=== PATIENT | female | born 1985 | race Caucasian/White ===

== ENCOUNTER 2016-11-03 16:22 | Emergency (ER) | payer BC ==
[~2016-11-03] VITALS: Wt 120.2 kg
[~2016-11-03 16:22] MED LIST: AMOXICILLIN500 M2 PO; LISINOPRIL/HCTZ1 TA3 PO; LOMOTIL 0.025 M1 TA1 PO; MELOXICAM7.5 MG PO; Meclizine25 MG PO; ZOFRAN4 MG PO; ZYRTEC10 MG PO
[2016-11-03] MEDS ORDERED: MELOXICAM7.5 MG PO (16:38)
[2016-11-03 17:14] LABS: BASO % 0.4 % (0.0-1.0); EOS # 0.2 10*3/uL (0.0-0.4); EOS % 2.1 % (1.0-4.0); HEMATOCRIT 36.2 % (37.0-47.0); HEMOGLOBIN 12.9 g/dl (12.0-16.0); LYMPH # 2.2 10*3/uL (1.3-4.4); MEAN CELL VOLUME 88.3 fl (81.0-99.0); MEAN CORPUSCULAR HGB 31.5 pg (27.0-31.0); MEAN CORPUSCULAR HGB CONC 35.6 g/dl (33.0-37.0); MEAN PLATELET VOLUME 10.7 fl (9.6-12.3); MONO # 0.6 10*3/uL (0.1-1.0); MONO % 8.5 % (3.0-9.0); NEUT # 4.3 10*3/uL (2.3-7.9); NEUT % 58.6 % (47.0-73.0); PLATELET COUNT AUTOMATED 229 10*3/uL (130-400); RED CELL DISTRI WIDTH 12.6 % (0-14.5); WHITE BLOOD COUNT 7.3 10*3/uL (4.8-10.8)
[2016-11-03 19:00] LABS: ALBUMIN 3.3 gm/dl (3.1-4.5); ALKALINE PHOSPHATASE 63 U/L (45-117); BILIRUBIN, TOTAL 0.3 mg/dl (0.2-1.0); BUN 5 mg/dl (7-24); CARBON DIOXIDE 28 mmol/L (21-32); CHLORIDE 105 mmol/L (98-107); EST GLOM FILT AFRICAN AMERICAN > 60 ml/min; GLUCOSE 87 mg/dL (65-99); POTASSIUM 3.2 mmol/L (3.5-5.1); SGOT/AST 13 IU/L (3-35); SGPT/ALT 23 U/L (12-78); SODIUM 143 mmol/L (136-145); TOTAL PROTEIN 7.2 gm/dL (6.4-8.2)
[2016-11-03] MEDS ORDERED: ZOFRAN ODT4 MG SL (19:04)
[2016-11-03] MEDS ORDERED: K-TAB20 MEQ PO (19:04)
== END 2016-11-03 19:34 | disposition home or self-care (01) ==
LOC: ED 16:22
PROVIDERS: Physician Assistant
DX: K52.9 Noninfective gastroenteritis and colitis, unspecified (principal); Z79.899 Other long term (current) drug therapy

== ENCOUNTER → 2016-12-04 | Day surgery (SDC) | payer BC ==
[~2016-12-04] VITALS: Ht 170.1 cm; Wt 123.4 kg
[2016-12-04] VITALS (9 sets, daily range): BP systolic 131–153; BP diastolic 83–96
[~2016-12-04] MED LIST changes: +HYDROCODONE BIT1 T11 PO; +IBU800 MG PO; +K-TAB20 MEQ PO; +MULTIPLE VITAMI1 T25 PO; +ZOFRAN ODT4 MG SL
--- NOTE | ~2016-12-04 | O ---
[place], [place] OPERATIVE NOTE [facility]: [id number] UNIT #: [id number] ROOM: DOCTOR: ALY LEUNG MD BIRTHDATE: [birth year] DOS: 12/04/2016 PREOPERATIVE DIAGNOSIS: Symptomatic gallstones. POSTOPERATIVE DIAGNOSIS: Symptomatic gallstones. PROCEDURE: Laparoscopic cholecystectomy. SURGEON: Aly Leung MD PROCESS EXCELLENCE MANAGER: [id number]. ANESTHESIA: General with endotracheal intubation. INDICATIONS: This is a 31-year-old lady who is here for a laparoscopic cholecystectomy with symptomatic gallstones disease. Procedure and its complications were explained to the patient in detail. Complications that were discussed included, but were not limited to bleeding, infection, hematoma/seroma/abscess formation, prolonged postoperative pain, damage to underlying vital structures, inadvertent injury to common bile duct, biloma formation and incisional hernia formation. She agreed to proceed. DESCRIPTION OF PROCEDURE: After identifying the patient, the patient was brought to the operating suite and laid in the supine position. After induction of general anesthesia, timeout procedure was called and the parts were then painted and draped in the usual sterile fashion. An incision was made in a transverse fashion below the umbilicus. The skin and the subcutaneous tissue were incised. The fascia was incised and the edges of the fascia were hooked up with the help of 0 Vicryl for the purposes of tethering the [place] port. The peritoneum was opened and a 12 mm [place] port was introduced into the peritoneal cavity and pneumoperitoneum was created. Under direct vision, an epigastric incision of 10 mm and two 5 mm incisions were made in the right upper quadrant. The gallbladder was retracted superiorly and laterally. Because of enlarged fatty liver, it was decided to do the fundus first technique which was done with the help of electrocautery. After adequate mobilization of the gallbladder was obtained, the gallbladder was retracted superiorly and laterally. The cystic duct and the cystic artery were meticulously dissected until the critical view of safety was obtained and the triangle of Calot was identified. Thereafter, each of these structures were clipped 3 times and cut between the first and the second clip. The gallbladder was then removed from the bed of the gallbladder and placed in an EndoCatch bag and removed from the peritoneal cavity. It was sent for histopathological diagnosis. Hemostasis was achieved in the liver bed. For additional [place], [place] OPERATIVE NOTE NAME: RAS TERESA UNIT #: [id number] ROOM: DOCTOR: ALY LEUNG MD BIRTHDATE: [birth year] hemostasis, a piece of Surgicel was placed in the liver bed. After hemostasis was confirmed, the excess blood was sucked away and irrigation was used to irrigate the peritoneal cavity after hemostasis was confirmed again. The right upper quadrant and epigastric ports were removed and there was no bleeding seen. The umbilical port was also removed and the 2 fascial sutures were tied together. The edges of the skin were approximated with the help of 4-0 Vicryl after infiltrating it with 1% plain lidocaine. The patient was extubated uneventfully and the patient was taken to the recovery room in a stable fashion. There were no complications. Dr. Aly Leung, the attending surgeon was present throughout the operating case. Aly Leung MD CM:OPRECORD:OPERATIVE NOTE [id number] ALY LEUNG MD 12/04/[id number] interface
== END | disposition home or self-care (01) ==
LOC: SDC 11-28 10:15
DX: K80.12 Calculus of gallbladder with acute and chronic cholecystitis without obstruction (principal); Z87.891 Personal history of nicotine dependence; I10 Essential (primary) hypertension; K21.9 Gastro-esophageal reflux disease without esophagitis; F41.9 Anxiety disorder, unspecified; G43.909 Migraine, unspecified, not intractable, without status migrainosus; F32.9 Major depressive disorder, single episode, unspecified; H81.09 Meniere's disease, unspecified ear; Z98.890 Other specified postprocedural states; Z83.3 Family history of diabetes mellitus; Z82.49 Family history of ischemic heart disease and other diseases of the circulatory system

== ENCOUNTER 2017-12-11 11:58 | Emergency (ER) | payer OTHER ==
[~2017-12-11] VITALS: Ht 167.6 cm; Wt 120.2 kg
[2017-12-11 12:28] LABS: BASO % 0.1 % (0.0-1.0); EOS % 0.1 % (1.0-4.0); HEMATOCRIT 32.7 % (37.0-47.0); HEMOGLOBIN 11.2 g/dl (12.0-16.0); LYMPH % 14.1 % (27.0-41.0); MEAN CELL VOLUME 92.1 fl (81.0-99.0); MEAN CORPUSCULAR HGB 31.5 pg (27.0-31.0); MEAN CORPUSCULAR HGB CONC 34.3 g/dl (33.0-37.0); MEAN PLATELET VOLUME 10.6 fl (9.6-12.3); MONO # 0.6 10*3/uL (0.1-1.0); MONO % 7.7 % (3.0-9.0); NEUT # 5.6 10*3/uL (2.3-7.9); NEUT % 77.6 % (47.0-73.0); PLATELET COUNT AUTOMATED 221 10*3/uL (130-400); RED BLOOD COUNT 3.55 10*6/uL (4.10-5.10); RED CELL DISTRI WIDTH 13.2 % (0-14.5); WHITE BLOOD COUNT 7.2 10*3/uL (4.8-10.8)
[2017-12-11 12:45] LABS: ALBUMIN 2.8 gm/dl (3.1-4.5); ALKALINE PHOSPHATASE 116 U/L (45-117); BUN 4 mg/dl (7-24); CHLORIDE 106 mmol/L (98-107); CREATININE 0.51 mg/dL (0.55-1.02); POTASSIUM 3.1 mmol/L (3.5-5.1); SGOT/AST 12 IU/L (3-35); SGPT/ALT 18 U/L (12-78); SODIUM 136 mmol/L (136-145); TOTAL PROTEIN 7.5 gm/dL (6.4-8.2)
[2017-12-11 13:43] LABS: BILIRUBIN 2+ (NEGATIVE); BLOOD NEGATIVE (NEGATIVE); CLARITY CLOUDY (CLEAR); COLOR YELLOW (YELLOW); GLUCOSE NEGATIVE (NEGATIVE); KETONE 3+ (NEGATIVE); LEUKO ESTERASE NEGATIVE (NEGATIVE); NITRITE NEGATIVE (NEGATIVE); SPECIFIC GRAVITY >= 1.030 (1.005-1.030); UROBILINOGEN 0.2 E.U./dl (0.2-1.0)
[2017-12-11 13:59] LABS: BACTERIA 3+; CALCIUM OXALATE CRYSTALS 3+
[2017-12-11] MEDS ORDERED: ZOFRAN4 MG PO (15:08)
== END 2017-12-11 14:56 | disposition home or self-care (01) ==
LOC: ED 11:58
PROVIDERS: Nurse Practitioner Family
DX: O99.613 Diseases of the digestive system complicating pregnancy, third trimester (principal); K52.9 Noninfective gastroenteritis and colitis, unspecified; O26.893 Other specified pregnancy related conditions, third trimester; R03.0 Elevated blood-pressure reading, without diagnosis of hypertension; Z3A.32 32 weeks gestation of pregnancy; Z79.899 Other long term (current) drug therapy

== ENCOUNTER → 2019-03-30 | Outpatient (CLI) | payer OTHER ==
[~2019-03-30] MED LIST changes: +CELECOXIB200 M1 PO; +Motrin,Rufen800 MG PO; +NORCO 5-325 TA1 EACH PO; +SEPTDS PO
[2019-03-30 10:00] LABS: HEMATOCRIT 36.5 % (37.0-47.0); HEMOGLOBIN 12.2 g/dl (12.0-16.0); MEAN CELL VOLUME 92.2 fl (81.0-99.0); MEAN CORPUSCULAR HGB 30.8 pg (27.0-31.0); MEAN CORPUSCULAR HGB CONC 33.4 g/dl (33.0-37.0); MEAN PLATELET VOLUME 10.5 fl (9.6-12.3); RED BLOOD COUNT 3.96 10*6/uL (4.10-5.10); RED CELL DISTRI WIDTH 12.7 % (0-14.5); WHITE BLOOD COUNT 6.6 10*3/uL (4.8-10.8)
[2019-03-30 10:26] LABS: ALBUMIN 3.5 gm/dl (3.1-4.5); ALKALINE PHOSPHATASE 81 U/L (45-117); BUN 12 mg/dl (7-24); CHLORIDE 104 mmol/L (98-107); CHOLESTEROL 166 mg/dL (<200); CREATININE 0.68 mg/dL (0.55-1.02); HDL CHOLESTEROL 47 mg/dl (40-60); LDL CHOLESTEROL 97 mg/dL (9-159); POTASSIUM 3.6 mmol/L (3.5-5.1); SGOT/AST 11 IU/L (3-35); SGPT/ALT 18 U/L (12-78); SODIUM 139 mmol/L (136-145); TOTAL PROTEIN 7.9 gm/dL (6.4-8.2); TRIGLYCERIDES 109 mg/dl (<150); VLDL CHOLESTEROL 22 mg/dL (6-40)
== END ==
LOC: LAB 09:05
PROVIDERS: Physician Assistant
DX: I10 Essential (primary) hypertension (principal)

== ENCOUNTER 2019-05-14 08:46 | Emergency (ER) | payer OTHER ==
[~2019-05-14] VITALS: Ht 170.1 cm; Wt 90.7 kg
== END 2019-05-14 09:38 | disposition home or self-care (01) ==
LOC: ED 08:46
DX: T22.111A Burn of first degree of right forearm, initial encounter (principal); I10 Essential (primary) hypertension; K21.9 Gastro-esophageal reflux disease without esophagitis; G43.909 Migraine, unspecified, not intractable, without status migrainosus; Z79.899 Other long term (current) drug therapy; X11.8XXA Contact with other hot tap-water, initial encounter; Y93.89 Activity, other specified; Y92.233 Cafeteria of hospital as the place of occurrence of the external cause; Y99.0 Civilian activity done for income or pay

== ENCOUNTER → 2020-05-15 | Outpatient (CLI) | payer OTHER | END | disposition home or self-care (01) | LOC: US 05-04 11:30 | PROVIDERS: ATTEND Nurse Practitioner Women's Health | DX: N88.8 Other specified noninflammatory disorders of cervix uteri (principal); N92.0 Excessive and frequent menstruation with regular cycle; N94.6 Dysmenorrhea, unspecified; M25.459 Effusion, unspecified hip ==

== ENCOUNTER 2022-11-02 12:38 | Emergency (ER) | payer OTHER ==
[~2022-11-02] VITALS: Ht 170.1 cm; Wt 128.4 kg
[2022-11-02] MEDS ORDERED: LOPERAMIDE HCL2 MG PO (12:54)
[2022-11-02] MEDS ORDERED: LISINOPRIL10 M1 PO (12:55)
[2022-11-02] MEDS ORDERED: HYOSCYAMINE PO (12:55)
[2022-11-02] MEDS ORDERED: IBU800 M1 PO (12:55)
[2022-11-02] MEDS ORDERED: TRANSDERM-SCOP1 EAC1 T (12:56)
[2022-11-02] MEDS ORDERED: ONDANSETRON HYDR4 MG PO (12:56)
[2022-11-02] MEDS ORDERED: PERCOCET 5-3251 EACH PO (17:04)
[2022-11-02] MEDS ORDERED: KNEE STABILIZE1 EACH MC (17:06)
== END 2022-11-02 17:32 | disposition home or self-care (01) ==
LOC: ED 12:38
DX: S83.412A Sprain of medial collateral ligament of left knee, initial encounter (principal); Z79.899 Other long term (current) drug therapy; W18.39XA Other fall on same level, initial encounter; Y93.89 Activity, other specified; Y92.89 Other specified places as the place of occurrence of the external cause; Y99.8 Other external cause status